=== PATIENT | female | born 1995 | race American Indian/Alaskan Native ===

== ENCOUNTER 2020-04-19 12:07 | Emergency (ER) | payer OTHER, SELFPAY ==
[2020-04-19] VITALS (15 sets, daily range): BP systolic 106–133; BP diastolic 59–80; PULSE 70–104; RESP 10–20; TEMP 37.2; O2SAT 96–99; BMI 48.4
--- NOTE | 2020-04-19 12:18 | ED_ITS ---
HPI - Overdose General Chief Complaint: Altered Mental Status Stated Complaint: Percocet overdose Time Seen by Provider: 04/19/20 12:12 Source: patient and EMS Mode of arrival: EMS Limitations: no limitations History of Present Illness HPI Narrative: Patient is a 24-year-old female who presents after an accidental overdose of PERC 30. She states that they are not hers he was taking them for her chronic hip pain. He said around 6:00 a.m. she took about 1 and half tablets however at around 10:00 a.m. she took the last half and so she took 2 total tablets. Her brother was driving and she was the passenger. She passed out while he was driving at which point he called 911. She says she was actually on her way to work. She required 12 mg of Narcan intranasally by EMS to become responsive. She has never overdosed before medication is not even hers. complaint: accidental overdose Timing confirmed by: family member Context: Accidental Overdose: other (Wanted pain and hip to go away) Related Data Home Medications Medication Instructions Recorded Confirmed ACETAMINOPHEN 0 mg PO Q4HP #0 02/16/13 oxycodone-acetaminophen #0 10/05/17 Allergies Allergy/AdvReac Type Severity Reaction Status Date / Time AMOXICILLIN Allergy Unknown Uncoded 04/19/20 12:21 Review of Systems Review of Systems ROS Unobtainable: All systems reviewed & are unremarkable except as noted in HPI and below Constitutional Constitutional: Denies chills, Denies fever(s), Denies lethargy and Denies weakness Eyes Eyes: Denies change in vision, Denies eye discharge, Denies irritation and Denies loss of vision Cardiovascular Cardiovascular: Denies chest pain, Denies irregular heart rhythm, Denies lightheadedness, Denies palpitations, Denies dyspnea, Denies dyspnea on exertion and Denies orthopnea Respiratory Respiratory: Denies cough, Denies dyspnea, Denies dyspnea on exertion and Denies wheezing Neurologic Neurologic: Denies loss of vision and Denies weakness Psychiatric Psychiatric: Reports system reviewed and no additional complaints, except as documented Endocrine Endocrine: Denies palpitations Allergic/Immunologic Allergic/Immunologic: Denies wheezing Patient History Medical History Patient denies medical problems (Acute) Social History Smoking Status: Current every day smoker Exam Initial Vital Signs Initial Vital Signs: Vital Signs Temperature 98.9 F 04/19/20 12:09 Pulse Rate 89 04/19/20 12:09 Respiratory Rate 10 L 04/19/20 12:09 Blood Pressure 133/80 04/19/20 12:09 Pulse Oximetry 99 04/19/20 12:09 GENERAL: Overweight female alert and oriented and in no acute distress. HEENT: Head atraumatic,EOMI, pupils reactive, face symmetric CARDIOVASCULAR: Regular rate and rhythm without murmurs, rubs or gallops. RESPIRATORY: Breath sounds equal bilaterally, no wheezes rales or rhonchi. ABDOMEN: Soft, nontender. Normoactive bowel sounds all 4 quadrants. No guarding or rebound. EXTREMITIES: Normal range of motion, no clubbing or edema. Neurovascularly intact NEUROLOGICAL: Alert and oriented x4.Normal gait and speech. SKIN: Warm, dry, no laceration, no petechiae, no rashes or lesions. Course Orders Ordered: ED Orders 04/19/20 12:20 Acetaminophen Stat Acetaminophen Stat Complete Blood Count AUTO DIFF Stat Comprehensive Metabolic Panel Stat Ethanol (ETOH) Stat Hepatic (Liver) Panel Stat Salicylate Stat 04/19/20 12:30 Urine Drug Screen, Rapid Stat Vital Signs Vital signs: Vital Signs - 8 hr 04/19/20 12:09 04/19/20 12:18 04/19/20 12:30 Temperature 98.9 F Pulse Rate 89 92 H 91 H Respiratory Rate 10 L 12 15 Blood Pressure 133/80 Pulse Oximetry 99 98 98 04/19/20 12:45 04/19/20 13:00 04/19/20 13:30 Temperature Pulse Rate 88 86 104 H Respiratory Rate 12 Blood Pressure 119/72 Pulse Oximetry 97 97 98 04/19/20 14:00 04/19/20 14:30 04/19/20 14:44 Temperature Pulse Rate 85 82 98 H Respiratory Rate 17 Blood Pressure 119/72 Pulse Oximetry 96 97 98 04/19/20 15:00 04/19/20 15:23 04/19/20 15:32 Temperature Pulse Rate 76 70 84 Respiratory Rate Blood Pressure 106/80 Pulse Oximetry 99 97 97 04/19/20 16:00 04/19/20 16:17 04/19/20 16:30 Temperature Pulse Rate 82 70 71 Respiratory Rate 20 10 L Blood Pressure 119/59 L 119/59 L Pulse Oximetry 98 96 98 MDM - Overdose Lab Data Attestation: I reviewed the patient's lab results. Result diagrams: 04/19/20 12:20 04/19/20 12:20 Labs: Lab Results 04/19/20 04/19/20 04/19/20 Range/Units 12:20 12:20 12:20 WBC 8.9 (4.5-11.0) X10^3/uL RBC 4.84 (4.0-5.2) X10^6/uL Hgb 14.0 (12.0-16.0) g/dL Hct 41.6 (36-46) % MCV 86.0 (80-100) fL MCH 28.9 (26-34) PG MCHC 33.6 (30-36) % RDW 13.0 (11.6-14.8) % Plt Count 202 (150-400) X10^3/uL Neut % (Auto) 66.6 (50-75) % Lymph % (Auto) 22.9 L (25-40) % [place] % (Auto) 7.1 (3-14) % Eos % (Auto) 2.9 (2-4) % Baso % (Auto) 0.5 (0-2) % Neut # (Auto) 5900 (4820-1367) /uL Lymph # (Auto) 2000 (2913-1535) /uL [place] # (Auto) 600 (0-900) /uL Eos # (Auto) 300 (0-450) /uL Baso # (Auto) 0 (0-100) /uL Sodium 140 (137-145) mmol/L Potassium 3.5 (3.4-5.1) mmol/L Chloride 105 (98-107) mmol/L Carbon Dioxide 28 (22-32) mmol/L BUN 9 (7-17) mg/dL Creatinine 0.76 (0.52-1.04) mg/dL Estimated GFR > 60.0 (>60) mL/min BUN/Creatinine Ratio 11.8 (6-22) Glucose 93 (70-100) mg/dL Calcium 9.2 (8.4-10.2) mg/dL Total Bilirubin 0.4 (0.2-1.3) mg/dL Conjugated Bilirubin 0.0 (0.0-0.3) md/dL Unconjugated Bilirubin 0.3 (0.0-1.1) mg/dL AST 28 (14-36) IU/L ALT 26 (<35) IU/L Alkaline Phosphatase 61 (38-126) U/L Total Protein 7.1 (6.3-8.2) g/dL Albumin 4.2 (3.5-5.0) g/dL Globulin 2.9 (1.7-4.1) g/dL Albumin/Globulin Ratio 1.4 (1.0-2.8) Salicylates 1.0 (<20) mg/dL U Opiates 300ng/mL cut (Negative) Ur Oxycodone Screen (Negative) Urine Methadone Screen (Negative) Acetaminophen < 10 L < 10 L (10-30) ug/mL Ur Barbiturates Screen (Negative) U Tricyclic Antidepress (Negative) Ur Phencyclidine Scrn (Negative) Ur Amphetamines Screen (Negative) U Methamphetamines Scrn (Negative) Ur MDMA Scrn (Ecstasy) (Negative) U Benzodiazepines Scrn (Negative) Urine Cocaine Screen (Negative) U Marijuana (THC) Screen (Negative) Ethyl Alcohol < 10 ( - 10) mg/dL 04/19/20 Range/Units 12:30 WBC (4.5-11.0) X10^3/uL RBC (4.0-5.2) X10^6/uL Hgb (12.0-16.0) g/dL Hct (36-46) % MCV (80-100) fL MCH (26-34) PG MCHC (30-36) % RDW (11.6-14.8) % Plt Count (150-400) X10^3/uL Neut % (Auto) (50-75) % Lymph % (Auto) (25-40) % [place] % (Auto) (3-14) % Eos % (Auto) (2-4) % Baso % (Auto) (0-2) % Neut # (Auto) (4293-9742) /uL Lymph # (Auto) (9875-2022) /uL [place] # (Auto) (0-900) /uL Eos # (Auto) (0-450) /uL Baso # (Auto) (0-100) /uL Sodium (137-145) mmol/L Potassium (3.4-5.1) mmol/L Chloride (98-107) mmol/L Carbon Dioxide (22-32) mmol/L BUN (7-17) mg/dL Creatinine (0.52-1.04) mg/dL Estimated GFR (>60) mL/min BUN/Creatinine Ratio (6-22) Glucose (70-100) mg/dL Calcium (8.4-10.2) mg/dL Total Bilirubin (0.2-1.3) mg/dL Conjugated Bilirubin (0.0-0.3) md/dL Unconjugated Bilirubin (0.0-1.1) mg/dL AST (14-36) IU/L ALT (<35) IU/L Alkaline Phosphatase (38-126) U/L Total Protein (6.3-8.2) g/dL Albumin (3.5-5.0) g/dL Globulin (1.7-4.1) g/dL Albumin/Globulin Ratio (1.0-2.8) Salicylates (<20) mg/dL U Opiates 300ng/mL cut Negative (Negative) Ur Oxycodone Screen Positive H (Negative) Urine Methadone Screen Negative (Negative) Acetaminophen (10-30) ug/mL Ur Barbiturates Screen Negative (Negative) U Tricyclic Antidepress Negative (Negative) Ur Phencyclidine Scrn Negative (Negative) Ur Amphetamines Screen Negative (Negative) U Methamphetamines Scrn Negative (Negative) Ur MDMA Scrn (Ecstasy) Negative (Negative) U Benzodiazepines Scrn Negative (Negative) Urine Cocaine Screen Negative (Negative) U Marijuana (THC) Screen Positive H (Negative) Ethyl Alcohol ( - 10) mg/dL Point of Care Testing Test Results Negative Glucose POC 103 Urine Dip Bedside Urine Glucose Negative Bedside Urine Bilirubin - Negative Bedside Urine Ketone - Negative Urine Specific [place] 1.030 Bedside Urine Occult Blood +++ Bedside Urine pH 6.0 Bedside Urine Protein + 30 Bedside Urine Urobilinogen - Negative Bedside Urine Nitrite - Negative Bedside Urine Leukocytes + 70 Esterase MDM Narrative Medical decision making narrative: 1:15 p.m. patient is re-evaluated she is responsive, CO2 monitor shows 38. 3:30 p.m. patient is awake alert talking requesting for Gatorade she is given ap ple juice to drink. Respirations are noted to be about 10 by the [employer] however she is alert and talking. Repeat Tylenol level is negative. She is clearly upset by the events that happened today. This was unintentional. She has a friend here with her now. Discharge Plan Departure Patient Disposition: Home Clinical Impression: Opiate or related narcotic overdose Qualifiers: Encounter type: initial encounter Injury intent: accidental or unintentional Qualified Code(s): T40.601A - Poisoning by unspecified narcotics, accidental (unintentional), initial encounter Discharge Date/Time: 04/19/20 16:43 Activity Restrictions/Additional Instructions: *You have been diagnosed with opiate overdose *What to do: Do not take any opiate medications or used heroin. If you are in eating and pain medications please see Do not drive while intoxicated *Continue to take medications as directed *Follow up with your primary care provider in 2-3 days *Return to ER if you should have increased drowsiness, confusion or any new, worsening or concerning symptoms Prescriptions: No Action ACETAMINOPHEN 0 mg PO Q4HP Qty: 0 RF: 0 oxycodone-acetaminophen 7.5 MG/325 MG tablet Qty: 0 RF: 0 Referrals: [facility] [Outside] [facility] [Outside] [facility] [Outside]
[2020-04-19 12:32] LABS: Add Manual Diff / Slide Review NO; Basophils Absolute Auto 0 /uL (0-100); Basophils Percent Auto 0.5 % (0-2); Eosinophils Absolute Auto 300 /uL (0-450); Eosinophils Percent Auto 2.9 % (2-4); Hematocrit 41.6 % (36-46); Lymphocytes Absolute Auto 2000 /uL (1100-4500); Lymphocytes Percent Auto 22.9 % (25-40); Mean Corpuscular HGB Conc 33.6 % (30-36); Mean Corpuscular Hemoglobin 28.9 PG (26-34); Monocytes Absolute Auto 600 /uL (0-900); Monocytes Percent Auto 7.1 % (3-14); Neutrophils Absolute Auto 5900 /uL (1500-7000); Neutrophils Percent Auto 66.6 % (50-75); Platelet Count 202 X10^3/uL (150-400); Red Blood Cell Count 4.84 X10^6/uL (4.0-5.2); White Blood Cell Count 8.9 X10^3/uL (4.5-11.0)
[2020-04-19 12:45] LABS: Acetaminophen < 10 ug/mL (10-30); Alanine Aminotransferase 26 IU/L (<35); Albumin 4.2 g/dL (3.5-5.0); Albumin Globulin Ratio 1.4 (1.0-2.8); Alkaline Phosphatase 61 U/L (38-126); Aspartate Aminotransferase 28 IU/L (14-36); BUN Creatinine Ratio 11.8 (6-22); Bilirubin Total 0.4 mg/dL (0.2-1.3); Bilirubin Unconjugated 0.3 mg/dL (0.0-1.1); Blood Urea Nitrogen 9 mg/dL (7-17); Calcium 9.2 mg/dL (8.4-10.2); Carbon Dioxide 28 mmol/L (22-32); Chloride 105 mmol/L (98-107); Estimated Glomerular Filt Rate > 60.0 mL/min (>60); Ethanol (ETOH) < 10 mg/dL; Globulin 2.9 g/dL (1.7-4.1); Glucose 93 mg/dL (70-100); HEMOLYSIS < 15 (0-50); Potassium 3.5 mmol/L (3.4-5.1); Sodium 140 mmol/L (137-145); Total Protein 7.1 g/dL (6.3-8.2)
[2020-04-19 12:55] LABS: UR Morphine/Opiate cutoff 300 Negative (Negative); Ur Creatinine 200 (Normal); Ur Specific Gravity 1.025 (Normal); Urine Amphetamines Negative (Negative); Urine Barbiturates Negative (Negative); Urine Benzodiazepines Negative (Negative); Urine Cocaine Negative (Negative); Urine MDMA Negative (Negative); Urine Methadone Negative (Negative); Urine Methamphetamines Negative (Negative); Urine Oxycodone Positive (Negative); Urine Phencyclidine Negative (Negative); Urine Tetrahydrocannabinol Positive (Negative); Urine Tricyclic Antidepressant Negative (Negative); Urine pH 5 (Normal)
[2020-04-19 13:26] LABS: Acetaminophen < 10 ug/mL (10-30)
--- NOTE | 2020-04-19 14:51 | PC.NURSE ---
Family member named Katie is in [email or web address] and states she is an aunt of the patient. Asked patient if she wanted Katie as visitor. Patient stated she did not, and that she only wanted her brother to visit at this time. The aunt has been informed. Her phone number is [phone].
== END 2020-04-19 16:43 | disposition home or self-care (01) ==
PROVIDERS: Emergency Provider Emergency Medicine
DX: T40.601A Poisoning by unspecified narcotics, accidental (unintentional), initial encounter (principal)
CPT/HCPCS: 36415; 80053; 80076; 80305; 80320; 80329; 81003; 81025; 82962; 85025; 99284; G0480